=== PATIENT | female | born 1935 | race Caucasian/White ===

== ENCOUNTER 2016-12-12 15:19 | Inpatient (IN) | payer OTHER ==
[~2016-12-12] VITALS: Ht 152.4 cm; Wt 80.0 kg
[~2016-12-12 15:19] MED LIST: CYCL-319; HYDR-1666; LAS20; LORA-52; MTF1000T; PANT40TA3; PENT400T; VALS1TAB64; ZOC20
[2016-12-12] MEDS ORDERED: IPRATROPIUM (NEB) 0.5 MG/2.5 ML AMP INH ONE (22:30)
[2016-12-12] MEDS ORDERED: ALBUTEROL 0.5% (NEB) 2.5 MG/0.5 ML AMP INH ONE (22:30)
--- NOTE | 2016-12-12 22:51 | RADRPT ---
PROCEDURE: XR Chest. CLINICAL INDICATION: Dyspnea. TECHNIQUE: Single frontal view of the chest was obtained COMPARISON: 12/11/2012 FINDINGS: Cardiomegaly. Changes of centrolobular emphysema are likely present. The lungs are clear. There is no pleural effusion or pneumothorax. IMPRESSION: 1. Cardiomegaly. 2. Otherwise, no acute process in the chest. RPTAT: [facility] Physician Mi Date Time Electronically viewed and signed by Kana Zapata Physician on 12/12/2016 22:51 RS/
[2016-12-12 22:58] LABS: BASOPHILS % 0.1 % (0.0-2.0); EOSINOPHILS # 0.3 10^3/ul (0.0-0.5); EOSINOPHILS % 3.4 % (0.0-7.0); HEMATOCRIT 28.5 % (37.0-47.0); LYMPHOCYTES # 2.7 10^3/ul (0.8-2.9); LYMPHOCYTES % 36.3 % (15.0-51.0); MEAN CORPUSCULAR HEMOGLOBIN 21.7 pg (29.0-33.0); MEAN CORPUSCULAR HGB CONC 31.6 g/dl (32.0-37.0); MEAN CORPUSCULAR VOLUME 68.6 fl (82.0-101.0); MEAN PLATELET VOLUME 7.9 fl (7.4-10.4); MONOCYTE # 0.8 10^3/ul (0.3-0.9); MONOCYTES % 10.3 % (0.0-11.0); NEUTROPHIL # 3.7 10^3/ul (1.6-7.5); NEUTROPHILS % 49.9 % (39.0-77.0); PLATELET COUNT 405 10^3/UL (140-440); RED BLOOD COUNT 4.15 10^6/ul (4.20-5.40); RED CELL DISTRIBUTION WIDTH 16.8 % (11.5-14.5); UNCORRECTED WBC 7.4 10^3/ul (4.8-10.8); WHITE BLOOD COUNT 7.4 10^3/ul (4.8-10.8)
[2016-12-12 23:00] LABS: CONDITION 1; LH ANALYZER COMMENTS 1
[2016-12-12 23:09] LABS: CHLORIDE 95 mmol/L (97-110)
[2016-12-12 23:10] LABS: POTASSIUM 4.8 mmol/L (3.5-5.1); SODIUM 133 mmol/L (135-144)
[2016-12-12 23:12] LABS: ALBUMIN/GLOBULIN RATIO 1.17; ALKALINE PHOSPHATASE 92 IU/L (42-121); ANION GAP 18 (8-16); ASPARTATE AMINO TRANSFERASE 75 IU/L (15-46); BILIRUBIN,INDIRECT 0.1 mg/dl (0-1.1); BILIRUBIN,TOTAL 0.1 mg/dl (0.2-1.3); CARBON DIOXIDE 25 mmol/L (21-31); CREATININE 0.61 mg/dl (0.44-1.00); TOTAL PROTEIN 7.4 g/dl (6.1-8.1)
[2016-12-12 23:13] LABS: ALANINE AMINOTRANSFERASE 40 IU/L (13-69); BLOOD UREA NITROGEN 7 mg/dl (7-20); CALCIUM 8.7 mg/dl (8.4-10.2); GLUCOSE 161 mg/dl (70-220)
[2016-12-12 23:22] LABS: B-TYPE NATRIURETIC PEPTIDE 174 PG/ML (0-450)
[2016-12-12 23:26] LABS: TROPONIN-I < 0.012 ng/ml (0.00-0.12)
[2016-12-13 01:00] VITALS: TEMP 99.3
--- NOTE | 2016-12-13 01:52 | ERA ---
ER Documentation Chief Complaint Date/Time DATE: 12/13/16 TIME: 01:51 Chief Complaint cough and congestion no relief with po abx, mild distress. mild palpitaiton HPI This is a 81-year-old female has cough congestion. She saw her PMD is placed on antibiotics no relief. She complains of alternating fevers and chills. Denies any nausea or vomiting. She does complain of mild palpitations. She denies any other current complaints. ROS All systems reviewed and are negative except as per history of present illness. Medications Home Meds Reported Medications Pentoxifylline (Pent[place]) 400 Mg Tablet.sa 12/10/12 Furosemide (Lasix) 20 Mg Tab 12/10/12 Metformin* (Glucophage*) 1,000 Mg Tablet 12/10/12 Hydrocodone Bit/Acetaminophen (Vicodin 5/500 Tablet) 1 Tab Tablet 12/10/12 Loratadine (Alavert) 10 Mg Tablet 12/10/12 Valsartan-Hydrochlorothiazide (Diovan HCT) 1 Tab Tablet 12/10/12 Cyclobenzaprine Hcl* (Cyclobenzaprine Hcl*) 10 Mg Tablet 12/10/12 Pantoprazole* (Protonix*) 40 Mg Tablet. 12/10/12 Simvastatin (Simvastatin) 20 Mg Tablet 12/10/12 Allergies Allergies: Coded Allergies: Codeine (Verified Allergy, 12/12/12) Uncoded Allergies: PCN (Allergy, 12/10/12) PMhx/Soc History of Surgery: No Anesthesia Reaction: No Hx Neurological Disorder: No Hx Respiratory Disorders: No Hx Cardiac Disorders: Yes (HYPERTENSION) Hx Psychiatric Problems: No Hx Miscellaneous Medical Probl: Yes (DM, HTN,GERD) Hx Alcohol Use: No Hx Substance Use: No Hx Tobacco Use: No Smoking Status: Never smoker Physical Exam Vitals Vital Signs Date Time Temp Pulse Resp B/P Pulse Ox O2 Delivery O2 Flow Rate FiO2 12/13/16 01:00 99.3 92 22 130/60 100 Nasal Cannula 12/12/16 23:20 95 22 95 21 12/12/16 22:25 Nasal Cannula 3 12/12/16 22:00 Nasal Cannula 3.0 12/12/16 15:35 99.1 94 22 182/77 97 Physical Exam Const: [] Head: Atraumatic Eyes: Normal Conjunctiva ENT: Normal External Ears, Nose and Mouth. Neck: Full range of motion..~ No meningismus. Resp: Clear to auscultation bilaterally Cardio: Regular rate and rhythm, no murmurs Abd: Soft, non tender, non distended. Normal bowel sounds Skin: No petechiae or rashes Back: No midline or flank tenderness Ext: No cyanosis, or edema Neur: Awake and alert Psych: Normal Mood and Affect Result Diagram: 12/12/16220412/12/162204 Results 24 hrs Laboratory Tests Test 12/12/16 22:05 Alanine Aminotransferase (ALT/SGPT) 40IU/L Albumin 4.0g/dl Albumin/Globulin Ratio 1.17 Alkaline Phosphatase 92IU/L Anion Gap 18 Aspartate Amino Transf (AST/SGOT) 75IU/L B-Type Natriuretic Peptide 174PG/ML Basophils # 0.010^3/ul Basophils % 0.1% Blood Morphology Comment Blood Urea Nitrogen 7mg/dl Calcium Level 8.7mg/dl Carbon Dioxide Level 25mmol/L Chloride Level 95mmol/L Creatinine 0.61mg/dl Direct Bilirubin 0.00mg/dl Eosinophils # 0.310^3/ul Eosinophils % 3.4% Globulin 3.40g/dl Glucose Level 161mg/dl Hematocrit 28.5% Hemoglobin 9.0g/dl Indirect Bilirubin 0.1mg/dl Lactic Acid Level 1.8mmol/L Lymphocytes # 2.710^3/ul Lymphocytes % 36.3% Mean Corpuscular Hemoglobin 21.7pg Mean Corpuscular Hemoglobin Concent 31.6g/dl Mean Corpuscular Volume 68.6fl Mean Platelet Volume 7.9fl Monocytes # 0.810^3/ul Monocytes % 10.3% Neutrophils # 3.710^3/ul Neutrophils % 49.9% Nucleated Red Blood Cells # 0.010^3/ul Nucleated Red Blood Cells % 0.0/100WBC Platelet Count 10465^3/UL Potassium Level 4.8mmol/L Red Blood Count 4.1510^6/ul Red Cell Distribution Width 16.8% Sodium Level 133mmol/L Total Bilirubin 0.1mg/dl Total Protein 7.4g/dl Troponin I < 0.012ng/ml White Blood Count 7.410^3/ul Current Medications Medications (Trade) Dose Ordered Sig/Cassi Route PRN Reason Start Time Stop Time Status Last Admin Dose Admin Albuterol (Proventil 0.5% (Neb)) 5 mg ONCE ONCE INH 12/12/16 22:30 12/12/16 22:31 DC 12/12/16 23:06 Ipratropium [place] (Atrovent 0.02% (Neb)) 0.5 mg ONCE ONCE INH 12/12/16 22:30 12/12/16 22:31 DC 12/12/16 23:06 Procedures/MDM EKG: Rate/Rhythm: Normal Sinus Rhythm QRS, ST, T-waves: No changes consistent w/ acute ischemia Impression: No evidence of ischemia or arrhythmia Chest X-ray 1V Interpreted by me: Soft Tissue: No acute abnormalities Bones: No acute abnormalities Mediastinum/Cardiac Silhouette/Lungs: No acute abnormalities Medical decision-makin female had acute bronchitis and has failed outpatient management. Given her continuing symptomatology along with her distress, patient will be admitted to Dr. Soria who is on-call for the patient. Dr. Soria was texted with admission information at 1:45 in the morning Departure Diagnosis: Primary Impression: Acute bronchitis Qualified Code: J20.9 - Acute bronchitis, unspecified organism Condition: Serious TAINA CAICEDO Dec 13, 2016 01:52
[2016-12-13 02:50] VITALS: BP 141/65; PULSE 88; RESP 18; Ht 152.4 cm; Wt 80.0 kg
[2016-12-13] MEDS ORDERED: SOD CHLORIDE 0.9% 1,000 ML IV SCH (04:30)
[2016-12-13] MEDS ORDERED: PANTOPRAZOLE (EC) 40 MG TAB PO ONE (04:30)
[2016-12-13] MEDS ORDERED: DEXTROSE 50% 50 ML SYRINGE IV PRN ×2 (05:30)
[2016-12-13] MEDS ORDERED: GLUCAGON 1 MG INJ IM PRN (05:30)
[2016-12-13] MEDS ORDERED: GLUCOSE GEL 15 GRAM TUBE BUCCAL PRN (05:30)
[2016-12-13] MEDS ORDERED: GLUCOSE GEL 15 GRAM TUBE PO PRN ×2 (05:30)
[2016-12-13] MEDS: LEVOFLOXACIN 500MG/D5W (PMX) 100 ML IVPB SCH (06:45)
[2016-12-13] MEDS: PANTOPRAZOLE (EC) 40 MG TAB PO SCH (06:51)
[2016-12-13 07:42] VITALS: BP 142/81; RESP 18
[2016-12-13] MEDS: INSULIN ASPART [NOVOLOG] 3 ML PEN SC SCH ×4 (08:17→21:00)
[2016-12-13] MEDS: ALBUTEROL 0.5% (NEB) 2.5 MG/0.5 ML AMP HHN SCH ×2 (08:54→16:08)
[2016-12-13] MEDS: IPRATROPIUM (NEB) 0.5 MG/2.5 ML AMP HHN SCH ×3 (08:54→20:21)
[2016-12-13] MEDS: ACETAMINOPHEN 325 MG TAB PO PRN ×2 (10:43→20:09)
[2016-12-13] MEDS ORDERED: FURO40TA4 PO (12:40)
[2016-12-13] MEDS ORDERED: ZOC20 PO (12:40)
[2016-12-13] MEDS ORDERED: ASPI-535 PO (12:40)
[2016-12-13] MEDS ORDERED: NAPR-688 PO (12:40)
[2016-12-13] MEDS ORDERED: VALS160T20 PO (12:40)
[2016-12-13] MEDS ORDERED: CHOL10009 PO (12:40)
[2016-12-13] MEDS ORDERED: LEVO0.5P MC (12:40)
[2016-12-13] MEDS ORDERED: HYDR50SO PO (12:40)
[2016-12-13] MEDS ORDERED: EZET10TA3 PO (12:40)
[2016-12-13] MEDS ORDERED: AMOX1TAB10 PO (12:40)
[2016-12-13] MEDS ORDERED: GLIM2TAB PO (12:40)
[2016-12-13] MEDS ORDERED: LORA5SOL8 PO (12:40)
[2016-12-13] MEDS: METHYLPREDNISOLONE 40 MG INJ IV SCH ×2 (14:08→21:56)
[2016-12-13] MEDS ORDERED: METF1000 PO (15:12)
[2016-12-13 16:49] VITALS: BP 145/65; RESP 20
[2016-12-13 20:15] VITALS: BP 169/74; RESP 20
--- NOTE | 2016-12-13 20:15 | QN ---
Documentation Comment [id number] JENNIFER DELGADO MD Dec 13, 2016 20:15
[2016-12-13] MEDS: LEVALBUTEROL (NEB) 1.25 MG/0.5 ML AMP HHN SCH (20:21)
[2016-12-13] MEDS ORDERED: INSULIN ASPART [NOVOLOG] 3 ML PEN SC ONE (21:00)
--- NOTE | 2016-12-13 21:35 | HP ---
DATE OF ADMISSION: 12/13/2016 HISTORY OF PRESENT ILLNESS: The patient is a 81-year-old female who has a history of diabetes, hype rtension, previously was discharged from here with diagnosis of hyponatremia, hypertension, myocardi al infarction ruled out, diabetes mellitus, dyslipidemia. Presented with shortness of breath, wheez ing and is being admitted for further management. The patient previously also had a 2D echo done, s hows ejection fraction 60% to 65%. PAST MEDICAL HISTORY: Hypertension, diabetes mellitus, dyslipidemia. ALLERGY HISTORY: 1. PENICILLIN. 2. CODEINE. SOCIAL HISTORY: Negative. FAMILY HISTORY: Noncontributory. MEDICATION HISTORY: The patient is on: 1. Amoxicillin. 2. Aspirin. 3. Vitamin D. 4. Cyclobenzaprine. 5. Zetia. 6. Lasix. 7. Furosemide. 8. Amaryl. 9. Hydrocodone. 10. Levothyroxine. 11. Loratadine. 12. Metformin. 13. Naproxen. 14. Protonix. 15. Pentoxifylline. 16. Simvastatin. 17. Diovan. REVIEW OF SYSTEMS: HEENT: Unremarkable. RESPIRATORY: Short of breath, cough. CARDIOVASCULAR: No chest pain, palpitation. GASTROINTESTINAL: Abdomen ____. CENTRAL NERVOUS SYSTEM: Unremarkable. PHYSICAL EXAMINATION: GENERAL: The patient is awake, alert. Mild shortness of breath. VITAL SIGNS: Pulse 80, blood pressure 145/65. HEENT: Head is atraumatic, normocephalic. Pupils equal, reactive to light. NECK: Supple. No JVD. LUNGS: Rhonchi and wheezes noted. CARDIOVASCULAR: S1, S2 normal. ABDOMEN: Soft, nontender. Bowel sounds present. No palpable mass or hepatosplenomegaly. No guard ing, rebound tenderness. EXTREMITIES: There is no cyanosis, clubbing or edema. CENTRAL NERVOUS SYSTEM: The patient is awake, alert. No deficit. LABORATORY DATA: Hematocrit 28.5. The patient has sodium 133, potassium 4.8. IMAGING: Chest x-ray shows cardiomegaly. IMPRESSION: 1. Acute hypoxic respiratory insufficiency with underlying bronchial asthma. 2. Hypertension. 3. Diabetes mellitus. 4. Hyponatremia. PLAN: Continue home medication, antibiotics, bronchodilator, steroid, sliding scale. Orders were d one. Dictated By: JENNIFER ALMONTE/NTS Conf#: [id number] [facility]#: [id number]
[2016-12-13] MEDS: EZETIMIBE 10 MG TAB PO SCH (21:39)
[2016-12-14] MEDS: ACCUCHECK XX SCH (02:00)
[2016-12-14] MEDS ORDERED: ACCUCHECK XX SCH ×3 (02:00)
[2016-12-14] MEDS: LEVALBUTEROL (NEB) 1.25 MG/0.5 ML AMP HHN SCH ×4 (02:43→20:22)
[2016-12-14] MEDS: IPRATROPIUM (NEB) 0.5 MG/2.5 ML AMP HHN SCH ×4 (02:43→20:22)
[2016-12-14] MEDS: LEVOFLOXACIN 500MG/D5W (PMX) 100 ML IVPB SCH (05:25)
[2016-12-14] MEDS: PANTOPRAZOLE (EC) 40 MG TAB PO SCH (05:25)
[2016-12-14] MEDS: METHYLPREDNISOLONE 40 MG INJ IV SCH ×3 (05:25→22:01)
[2016-12-14 06:07] LABS: POTASSIUM 4.8 mmol/L (3.5-5.1)
[2016-12-14 06:10] LABS: CREATININE 0.6 mg/dl (0.44-1.00)
[2016-12-14 06:11] LABS: CALCIUM 8.6 mg/dl (8.4-10.2)
[2016-12-14] MEDS: INSULIN ASPART [NOVOLOG] 3 ML PEN SC SCH ×7 (07:57→22:03)
[2016-12-14 08:10] VITALS: BP 158/75; RESP 18
[2016-12-14] MEDS ORDERED: GLIMEPIRIDE 2 MG TAB PO SCH (08:15)
[2016-12-14] MEDS ORDERED: metFORMIN 500 MG TAB PO SCH (08:15)
[2016-12-14] MEDS: ACETAMINOPHEN 325 MG TAB PO PRN (08:43)
[2016-12-14 08:58] LABS: BASOPHILS % 0.1 % (0.0-2.0); HEMATOCRIT 27.9 % (37.0-47.0); HEMOGLOBIN 8.8 g/dl (12.0-16.0); LYMPHOCYTES # 1.3 10^3/ul (0.8-2.9); LYMPHOCYTES % 27.1 % (15.0-51.0); MEAN CORPUSCULAR HGB CONC 31.6 g/dl (32.0-37.0); MEAN CORPUSCULAR VOLUME 69.6 fl (82.0-101.0); MEAN PLATELET VOLUME 8.3 fl (7.4-10.4); MONOCYTE # 0.1 10^3/ul (0.3-0.9); MONOCYTES % 2.5 % (0.0-11.0); NEUTROPHIL # 3.5 10^3/ul (1.6-7.5); NEUTROPHILS % 70.3 % (39.0-77.0); PLATELET COUNT 389 10^3/UL (140-440); RED BLOOD COUNT 4.01 10^6/ul (4.20-5.40); RED CELL DISTRIBUTION WIDTH 17.2 % (11.5-14.5)
[2016-12-14] MEDS ORDERED: FUROSEMIDE 20 MG TAB PO SCH (09:00)
[2016-12-14] MEDS ORDERED: INSULIN GLARGINE [LANtus] 3 ML PEN SC SCH (09:00)
[2016-12-14 09:05] LABS: CONDITION 1; LH ANALYZER COMMENTS 1
[2016-12-14] MEDS: VALSARTAN 160 MG TAB PO SCH (09:19)
[2016-12-14] MEDS: ASPIRIN (EC) 81 MG TAB PO SCH (09:19)
[2016-12-14] MEDS: LORATADINE 10 MG TAB PO SCH (09:19)
[2016-12-14] MEDS: FUROSEMIDE 40 MG TAB PO SCH (09:19)
[2016-12-14] MEDS: CHOLECALCIFEROL 1,000 UNIT TAB PO SCH (09:19)
[2016-12-14] MEDS: ENOXAPARIN 40 MG/0.4 ML SYG SC SCH (09:21)
--- NOTE | 2016-12-14 19:41 | PN ---
Date/Time of Note Date/Time of Note DATE: 12/14/16 TIME: 19:40 Assessment/Plan VTE Prophylaxis VTE Prophylaxis Intervention: other Lines/Catheters IV [facility] [place] [facility] Urinary Cath still in place: No Assessment/Plan Chief Complaint/Hosp Course IMPRESSION: The patient has: 1. Uremia. 2. End-stage renal disease. 3. Hypertension. 4. Diabetes mellitus. 5. Atherosclerotic heart disease. 6. Dyslipidemia. 7. Diabetic nephropathy, retinopathy and neuropathy. 8. Hyperkalemia. 9. Leukocytosis. 10. Anemia. 11. History of arteriovenous fistula placement, left upper extremity. PLAN DEC SOLUMEDROL Problems: Subjective 24 Hr Interval Summary Respiratory: shortness of breath (BETTER) Cardiovascular: no complaints Gastrointestinal: no complaints Exam/Review of Systems Vital Signs Vitals Vital Signs Date Time Temp Pulse Resp B/P Pulse Ox O2 Delivery O2 Flow Rate FiO2 12/14/16 18:03 2.0 12/14/16 14:36 92 20 94 12/14/16 11:16 Nasal Cannula 12/14/16 08:10 98.4 158/75 12/14/16 02:43 28 Intake and Output 12/13/16 12/13/16 12/14/16 15:00 23:00 07:00 Intake Total 100 ml 1120 ml 400 ml Balance 100 ml 1120 ml 400 ml Exam Respiratory: diminished breath sounds Cardiovascular: regular rate and rhythm Gastrointestinal: soft Musculoskeletal: nl extremities to inspection Results Result Diagram: 12/14/16 0515 12/14/16 1235 Results 24 hrs Laboratory Tests Test 12/13/16 20:13 12/13/16 21:42 12/14/16 02:11 12/14/16 05:05 Bedside Glucose 315 H 300 H 251 H Anion Gap 17 H Blood Urea Nitrogen 11 Calcium Level 8.6 Carbon Dioxide Level 25 Chloride Level 98 Creatinine 0.60 Glucose Level 267 #H Potassium Level 4.8 Sodium Level 135 Test 12/14/16 05:15 12/14/16 07:55 12/14/16 11:59 12/14/16 12:35 Basophils # 0.0 Basophils % 0.1 Blood Morphology Comment Eosinophils # 0.0 Eosinophils % 0.0 Hematocrit 27.9 L Hemoglobin 8.8 L Lymphocytes # 1.3 Lymphocytes % 27.1 Mean Corpuscular Hemoglobin 22.0 L Mean Corpuscular Hemoglobin Concent 31.6 L Mean Corpuscular Volume 69.6 L Mean Platelet Volume 8.3 Monocytes # 0.1 L Monocytes % 2.5 Neutrophils # 3.5 Neutrophils % 70.3 Nucleated Red Blood Cells # 0.0 Nucleated Red Blood Cells % 0.0 Platelet Count 389 Red Blood Count 4.01 L Red Cell Distribution Width 17.2 H White Blood Count 5.0 # Bedside Glucose 280 H 378 H Glucose Level 371 H Test 12/14/16 17:09 Bedside Glucose 249 H Medications Medications Current Medications Levofloxacin/ Dextrose (Levaquin 500mg/ D5W 100 ml (Pmx)) 100 ml @ 100 mls/hr Q24H IVPB Last administered on 12/14/16 05:25; Admin Dose 100 MLS/HR; Start at 04:30 Acetaminophen (Tylenol Tab) 650 mg Q6H PRN PO PAIN AND OR ELEVATED TEMP Last administered on 12/14/16 08:43; Admin Dose 650 MG; Start 12/13/16 at 05:00 Miscellaneous Information 1 ea NOTE XX ; Start 12/13/16 at 05:30 Glucose (Glutose) 15 gm Q15M PRN PO DECREASED GLUCOSE; Start 12/13/16 at 05:30 Glucose (Glutose) 22.5 gm Q15M PRN PO DECREASED GLUCOSE; Start 12/13/16 at 05: 30 Dextrose (D50w Syringe) 25 ml Q15M PRN IV DECREASED GLUCOSE; Start 12/13/16 at 05:30 Dextrose (D50w Syringe) 50 ml Q15M PRN IV DECREASED GLUCOSE; Start 12/13/16 at 05:30 Glucagon (Glucagen) 1 mg Q15M PRN IM DECREASED GLUCOSE; Start 12/13/16 at 05:30 Glucose (Glutose) 15 gm Q15M PRN BUCCAL DECREASED GLUCOSE; Start 12/13/16 at 05 :30 Pantoprazole (Protonix Tab) 40 mg DAILY@06 PO Last administered on 12/14/16 05 :25; Admin Dose 40 MG; Start 12/13/16 at 06:00 Enoxaparin Sodium (Lovenox) 40 mg DAILY SC Last administered on 12/14/16 09:21 ; Admin Dose 40 MG; Start 12/14/16 at 09:00 Methylprednisolone Sodium Succinate (Solu-Medrol) 40 mg Q8 IV Last administered on 12/14/16 15:26; Admin Dose 40 MG; Start 12/13/16 at 14:00 Aspirin (Halfprin) 81 mg DAILY PO Last administered on 12/14/16 09:19; Admin Dose 81 MG; Start 12/14/16 at 09:00 Cholecalciferol (Vitamin D) 1,000 unit DAILY PO Last administered on 12/14/16 09:19; Admin Dose 1,000 UNIT; Start 12/14/16 at 09:00 EZETIMIBE (Zetia) 10 mg HS PO Last administered on 12/13/16 21:39; Admin Dose 10 MG; Start 12/13/16 at 21:00 Furosemide (Lasix) 40 mg DAILY PO Last administered on 12/14/16 09:19; Admin Dose 40 MG; Start 12/14/16 at 09:00 Loratadine (Claritin) 10 mg DAILY PO Last administered on 12/14/16 09:19; Admin Dose 10 MG; Start 12/14/16 at 09:00 Valsartan (Diovan) 160 mg DAILY PO Last administered on 12/14/16 09:19; Admin Dose 160 MG; Start 12/14/16 at 09:00 Diagnostic Test (Pha) (Accucheck) 1 ea 02 XX Last administered on 12/14/16 02: 00; Admin Dose 1 EA; Start 12/14/16 at 02:00 Insulin Glargine (Lantus) 20 unit DAILY@08 SC ; Start 12/15/16 at 08:00 JENNIFER DELGADO MD Dec 14, 2016 19:41
[2016-12-14 20:51] VITALS: BP 158/69; RESP 18
[2016-12-14] MEDS: EZETIMIBE 10 MG TAB PO SCH (22:01)
[2016-12-15] MEDS: LEVALBUTEROL (NEB) 1.25 MG/0.5 ML AMP HHN SCH ×4 (01:27→20:40)
[2016-12-15] MEDS: IPRATROPIUM (NEB) 0.5 MG/2.5 ML AMP HHN SCH ×4 (01:27→20:40)
[2016-12-15] MEDS: ACCUCHECK XX SCH (02:00)
[2016-12-15] MEDS: LEVOFLOXACIN 500MG/D5W (PMX) 100 ML IVPB SCH (04:46)
[2016-12-15] MEDS: PANTOPRAZOLE (EC) 40 MG TAB PO SCH (05:26)
[2016-12-15 07:43] VITALS: BP 132/60; RESP 16
[2016-12-15] MEDS: METHYLPREDNISOLONE 40 MG INJ IV SCH ×2 (08:33→21:16)
[2016-12-15] MEDS: VALSARTAN 160 MG TAB PO SCH (08:33)
[2016-12-15] MEDS: ASPIRIN (EC) 81 MG TAB PO SCH (08:33)
[2016-12-15] MEDS: FUROSEMIDE 40 MG TAB PO SCH (08:34)
[2016-12-15] MEDS: CHOLECALCIFEROL 1,000 UNIT TAB PO SCH (08:34)
[2016-12-15] MEDS: INSULIN ASPART [NOVOLOG] 3 ML PEN SC SCH ×7 (08:37→21:17)
[2016-12-15] MEDS: INSULIN GLARGINE [LANtus] 3 ML PEN SC SCH (08:39)
[2016-12-15] MEDS: ENOXAPARIN 40 MG/0.4 ML SYG SC SCH (08:39)
[2016-12-15 08:45] VITALS: BP 135/64; PULSE 96
[2016-12-15] MEDS: LORATADINE 10 MG TAB PO SCH (10:06)
[2016-12-15] MEDS: ACETAMINOPHEN 325 MG TAB PO PRN (10:10)
[2016-12-15 20:00] VITALS: BP 142/97; PULSE 87; RESP 18
[2016-12-15] MEDS: EZETIMIBE 10 MG TAB PO SCH (21:16)
[2016-12-16] MEDS: IPRATROPIUM (NEB) 0.5 MG/2.5 ML AMP HHN SCH ×3 (02:18→13:46)
[2016-12-16] MEDS: LEVALBUTEROL (NEB) 1.25 MG/0.5 ML AMP HHN SCH ×3 (02:18→13:46)
[2016-12-16] MEDS: ACCUCHECK XX SCH (02:25)
[2016-12-16] MEDS: PANTOPRAZOLE (EC) 40 MG TAB PO SCH (05:53)
[2016-12-16] MEDS ORDERED: LEVOFLOXACIN 500 MG TAB PO SCH (06:00)
[2016-12-16] MEDS: INSULIN GLARGINE [LANtus] 3 ML PEN SC SCH (08:04)
[2016-12-16] MEDS: INSULIN ASPART [NOVOLOG] 3 ML PEN SC SCH ×6 (08:05→18:06)
[2016-12-16] MEDS: METHYLPREDNISOLONE 40 MG INJ IV SCH (09:52)
[2016-12-16] MEDS: CHOLECALCIFEROL 1,000 UNIT TAB PO SCH (09:53)
[2016-12-16] MEDS: VALSARTAN 160 MG TAB PO SCH (09:54)
[2016-12-16] MEDS: FUROSEMIDE 40 MG TAB PO SCH (09:54)
[2016-12-16] MEDS: LORATADINE 10 MG TAB PO SCH (09:54)
[2016-12-16] MEDS: ASPIRIN (EC) 81 MG TAB PO SCH (09:54)
[2016-12-16] MEDS: ENOXAPARIN 40 MG/0.4 ML SYG SC SCH (09:57)
[2016-12-16] MEDS: ACETAMINOPHEN 325 MG TAB PO PRN (10:00)
--- NOTE | 2016-12-16 16:55 | PDOCDIS ---
Discharge Instructions CONDITION Patient Condition: Stable HOME CARE INSTRUCTIONS: Special Diet: Carb.control,2gNa ACTIVITY: Activity Restrictions: Slowly Increase Activity FOLLOW UP/APPOINTMENTS Appointments f/u own pcp 1 wk JENNIFER DELGADO MD Dec 16, 2016 16:54
[2016-12-16] MEDS ORDERED: LEVO500T72 PO (17:05)
[2016-12-16] MEDS ORDERED: PRED10TA PO (17:05)
[2016-12-16] MEDS ORDERED: PANT40TA4 PO (17:05)
[2016-12-16] MEDS ORDERED: XOP15INH INH (17:05)
== END 2016-12-16 18:55 | disposition home or self-care (01) | DRG 202 ==
LOC: E/R 15:19 → MS2 12-13 01:38
PROVIDERS: ADMIT Internal Medicine Nephrology; ATTEND Internal Medicine Nephrology
DX: J45.909 Unspecified asthma, uncomplicated (principal); N18.6 End stage renal disease; I12.0 Hypertensive chronic kidney disease with stage 5 chronic kidney disease or end stage renal disease; E11.21 Type 2 diabetes mellitus with diabetic nephropathy; E87.1 Hypo-osmolality and hyponatremia; E11.22 Type 2 diabetes mellitus with diabetic chronic kidney disease; K21.9 Gastro-esophageal reflux disease without esophagitis; I25.10 Atherosclerotic heart disease of native coronary artery without angina pectoris; E87.5 Hyperkalemia; E11.319 Type 2 diabetes mellitus with unspecified diabetic retinopathy without macular edema; E11.40 Type 2 diabetes mellitus with diabetic neuropathy, unspecified; Z79.4 Long term (current) use of insulin; Z79.84 Long term (current) use of oral hypoglycemic drugs
CPT/HCPCS: 36415; 71010; 80048; 80053; 82947; 82962; 83605; 83880; 84484; 85025; 87040; 87400; 93005; 94640; 94664; J1650; J1815; J1956; J2920; J7030

== ENCOUNTER 2018-07-24 09:05 | Day surgery (SDC) | END 2018-07-24 12:10 | disposition home or self-care (01) ==